=== PATIENT | female | born 1995 | race Caucasian/White ===

== ENCOUNTER 2018-09-13 16:04 | Emergency (ER) | payer OTHER ==
[~2018-09-13] VITALS: Ht 160 cm; Wt 63.5 kg
[~2018-09-13 16:04] MED LIST: CIPROFLOXACIN500 M1 PO; NOHOMEMEDICATIONS; ULTRAM 50MG TAB50 MG PO
[2018-09-13 16:53] LABS: ABSOLUTE EOSINOPHILS 0.1 thou/uL (0.0-0.7); ABSOLUTE LYMPHOCYTES 1.9 thou/uL (0.8-5.3); ABSOLUTE MONOCYTES 0.6 thou/uL (0.0-1.2); ABSOLUTE NEUTROPHILS 6.1 thou/uL (1.6-8.1); BASOPHILS 0.3 %; EOSINOPHILS 1.3 %; HEMATOCRIT 43.3 % (37.0-47.0); HEMOGLOBIN 14.7 gm/dL (12.0-15.0); LYMPHOCYTES 21.6 %; MCH 29.7 pg (26.0-34.0); MCHC 33.9 g/dL (28.0-37.0); MCV 87.8 fL (80.0-100.0); MONOCYTES 6.9 %; MPV 9.2 fl. (7.2-11.1); NUCLEATED RBCS 0 /100WBC; PLATELET COUNT* 183 thou/uL (150-400); POLYS 69.9 %; RBC 4.93 mil/uL (4.20-5.00); RDW-CV 13.1 % (10.5-14.5); WBC 8.7 thou/uL (4.0-11.0)
[2018-09-13 17:04] LABS: ANION GAP 8 mmol/L (7-16); BUN 12 mg/dL (7-18); CALCIUM 8.9 mg/dL (8.5-10.1); CHLORIDE 105 mmol/L (98-107); CO2 25 mmol/L (21-32); CREATININE 0.9 mg/dL (0.6-1.3); GLUCOSE 114 mg/dL (70-99); POTASSIUM 3.6 mmol/L (3.5-5.1); SODIUM 138 mmol/L (136-145)
[2018-09-13 17:08] LABS: ALBUMIN 3.7 g/dL (3.4-5.0); ALKALINE PHOSPHATASE 54 U/L (46-116); SGOT 16 U/L (15-37); SGPT 17 U/L (30-65); TOTAL BILIRUBIN 0.4 mg/dL (<0.1-1.0); TOTAL PROTEIN 6.8 g/dL (6.4-8.2); TROPONIN-I LEVEL <0.06 ng/mL (<0.06)
[2018-09-13 17:09] LABS: URINE BILIRUBIN NEGATIVE (Negative); URINE BLOOD NEGATIVE (Negative); URINE COLOR YELLOW; URINE GLUCOSE-RANDOM NEGATIVE (Negative); URINE KETONES NEGATIVE (Negative); URINE LEUKOCYTES-REFLEX 1+ (Negative); URINE NITRITE-REFLEX NEGATIVE (Negative); URINE PROTEIN NEGATIVE (Negative); URINE SPECIFIC GRAVITY >= 1.030 (1.005-1.030); URINE UROBILINOGEN 0.2 E.U./dl (0.2-1.0)
[2018-09-13 17:10] LABS: URINE CLARITY HAZY
[2018-09-13 17:16] LABS: SQUAMOUS >10 Many /LPF (0-3)
[2018-09-13 17:17] LABS: BACTERIA-REFLEX 1-9 Few /HPF (None Seen); CASTS None Seen /LPF (None Seen); CRYSTALS None Seen /LPF (None Seen); URINE RBC 3-10 Few /HPF (0-2); URINE WBC-REFLEX 0-5 Rare /HPF (0-5)
[2018-09-13 17:38] LABS: AMP/METHAMP Negative (Negative); BARBITURATES Negative (Negative); BENZODIAZEPINES Negative (Negative); COCAINE Negative (Negative); METHADONE Negative (Negative); OPIATES POSITIVE (Negative); PCP Negative (Negative); THC POSITIVE (Negative)
[2018-09-13] MEDS ORDERED: ZOFRAN ODT4 MG PO (17:51)
[2018-09-13 18:01] VITALS: BP 101/66
--- NOTE | 2018-09-15 11:04 | EKG ---
[place] [address] ELECTROCARDIOGRAM REPORT Name: GUY TUBBS Room: [facility]#: [id number] Admission: 09/13/18 Attend Phys: Discharge: 09/13/18 Date of : [birth year] Report #: [id number] THIS REPORT FOR: //name// [facility] ED Test Date: 2018-09-13 Test Time: 16:49:44 Pat Name: GUY TUBBS Department: Room: Gender: F Shift Nurse Manager: MS : 1995 Requested By: Ronel Coyle Order Number: [id number] MD: Kausihk Valdez Measurements Intervals [place] Rate: 66 P: 23 TN: 138 QRS: 86 QRSD: 97 T: 52 QT: 380 QTc: 399 Interpretive Statements Sinus rhythm RSR' in V1 or V2, right VCD No previous ECG available for comparison Electronically Signed On 09-15-2018 11:04:47 ERGONOMICS TECHNICIAN by Kaushik Valdez [email or web address] <ELECTRONICALLY SIGNED> By: Kaushik Valdez MD, [facility] 09/15/18 1104 [id number] 48 Kaushik Valdez MD, FACC /EPI
== END 2018-09-13 18:01 | disposition home or self-care (01) ==
LOC: M.ERS 16:04
PROVIDERS: Physician Assistant
DX: R51 Headache (principal); R20.0 Anesthesia of skin

== ENCOUNTER 2019-04-05 12:14 | Emergency (ER) | payer OTHER ==
[~2019-04-05] VITALS: Ht 160 cm; Wt 61.2 kg
[~2019-04-05 12:14] MED LIST changes: +ZOFRAN ODT4 MG PO
[2019-04-05 12:21] VITALS: BP 130/88
[2019-04-05] MEDS ORDERED: IBUPROFEN 600600 M1 PO (13:00)
[2019-04-05] MEDS ORDERED: ACETAMINOPHEN-1 EAC1 PO (13:00)
== END 2019-04-05 13:10 | disposition home or self-care (01) ==
LOC: M.ERS 12:14
DX: S62.617A Displaced fracture of proximal phalanx of left little finger, initial encounter for closed fracture (principal); G43.909 Migraine, unspecified, not intractable, without status migrainosus; F17.210 Nicotine dependence, cigarettes, uncomplicated; W10.8XXA Fall (on) (from) other stairs and steps, initial encounter; Y93.89 Activity, other specified; Y92.89 Other specified places as the place of occurrence of the external cause; Y99.8 Other external cause status